=== PATIENT | female | born 1950 | race Caucasian/White ===

== ENCOUNTER 2018-02-23 22:25 | Emergency (ER) | payer MEDICARE, MEDICAID ==
[~2018-02-23] VITALS: Ht 162.6 cm; Wt 99.2 kg
[2018-02-23 22:31] VITALS: BP 171/98
[2018-02-23] MEDS ORDERED: ALBUTEROL (22:43)
[2018-02-23] MEDS ORDERED: ALBUTEROL SULFATE 2.5 MG/3 ML NPPB ONE (23:00)
[2018-02-23] MEDS ORDERED: ALBUTEROL SULFATE 2.5 MG/3 ML ONE (23:13)
== END 2018-02-24 00:25 | disposition home or self-care (01) ==
LOC: ED 23:44
DX: R05 Cough (principal); J44.9 Chronic obstructive pulmonary disease, unspecified
CPT/HCPCS: 71046; 94640; 99284; J7512; J7613